=== PATIENT | female | born 1960 | race Caucasian/White ===

== ENCOUNTER 2016-09-11 09:43 | Outpatient (CLI) | payer OTHER ==
[~2016-09-11 09:43] MED LIST: ALLEGRA ALLERG180 MG OR; ALLEGRA60 MG PO; ASCORBIC ACID500 M2 PO; BENADRYL 50MG C50 MG PO; BISOPROLOL FUMA1 TA3 PO; CYMBALTA60 MG PO; DEXAMETHASONE 4M4 MG FT; HYDROXYZINE HCL25 M1 PO; KETOTIFEN; LEADER NATUR1000 MCG PO; LEVOTHYROXINE0.1 M1 PO; MEDROL 4MG. DOSE4 MG PO; NASALCROM26 ML NS; NASONEX0.05 MG/AC NS; NEXIUM40 MG PO; PHARMASSURE VI100 MG PO; PREDNISONE 20MG20 MG PO; PROVENTIL0.09 MG/Ac IH; QUERCETIN1 POW PO; RANITIDINE HCL300 M1 PO; SINGULAIR10 MG PO; SYMBICORT 10.10.2 ML IH; THERALITH PO; WELLBUTRIN XL300 MG PO; XYZAL5 MG PO; Xanax0.25 MG PO; ZANTAC 150150 MG OR; ZOCOR10 MG PO
[2016-09-11 10:00] VITALS: BP 145/87
[2016-09-17] MEDS ORDERED: PREDNISONE 20MG20 MG PO (09:05)
== END 2016-09-11 13:50 | disposition home or self-care (01) ==
LOC: COP 09:43
DX: Q82.2 Congenital cutaneous mastocytosis (principal)

== ENCOUNTER → 2016-09-12 | Outpatient (CLI) | payer OTHER ==
[~2016-09-12] VITALS: Ht 172.7 cm; Wt 76.2 kg
[2016-09-12 14:00] VITALS: BP 135/92
[2016-09-12 16:10] VITALS: BP 157/91
== END ==
LOC: COP 10:00
DX: Q82.2 Congenital cutaneous mastocytosis (principal)

== ENCOUNTER → 2017-03-04 | Outpatient (CLI) | payer OTHER ==
[~2017-03-04] MED LIST changes: +HYDROCHLOROTHIA25 M1 PO
[2017-03-04 10:54] LABS: LYMPH # 1.6 K/mm3 (0.7-4.5); LYMPH % 22.3 % (10-50.0)
[2017-03-04 10:56] LABS: HEMOGLOBIN 13.8 g/dL (12.2-16.2)
[2017-03-04 11:05] LABS: BUN 13 mg/dL (7-18)
[2017-03-04 11:07] LABS: GFR (ESTIMATED) 51 ML/MIN (59-)
--- NOTE | 2017-03-04 14:03 | RADIOLOGY REPORT PS360 ---
HAND-RT 3 VIEWS HISTORY: Right hand pain BILAT HAND PAIN ORDERING PHYSICIAN: Redd Mcclelland MD PATIENT AGE: 56 years COMPARISON: None FINDINGS: No fracture or dislocation. No lytic or blastic change. There is normal mineralization. The joint spaces are well-preserved. No significant degenerative/arthritic changes. No erosive changes evident. IMPRESSION: Negative right hand, no acute finding
--- NOTE | 2017-03-04 14:04 | RADIOLOGY REPORT PS360 ---
HAND-LT-3 VIEWS HISTORY: Left hand pain BILAT HAND PAIN ORDERING PHYSICIAN: Redd Mcclelland MD PATIENT AGE: 56 years COMPARISON: None FINDINGS: No fracture or dislocation. No lytic or blastic change. There is normal mineralization. The joint spaces are well-preserved. No significant degenerative/arthritic changes. No erosive changes evident. IMPRESSION: Negative left hand, no acute finding
[2017-03-06 20:35] LABS: CCP Antibodies IgG/IgA 5 units (0-19)
[2017-03-07 12:40] LABS: Antinuclear Antibodies, IFA Positive (.)
== END ==
LOC: LAB 09:45
PROVIDERS: Internal Medicine Adolescent Medicine
DX: M12.9 Arthropathy, unspecified (principal); L65.9 Nonscarring hair loss, unspecified; J02.9 Acute pharyngitis, unspecified; M79.642 Pain in left hand; M79.641 Pain in right hand

== ENCOUNTER → 2017-03-25 | Outpatient (CLI) | payer OTHER | LOC: RT 13:07 | DX: G47.30 Sleep apnea, unspecified (principal); G47.10 Hypersomnia, unspecified; R06.83 Snoring ==